=== PATIENT | male | born 1965 | race Caucasian/White ===

== ENCOUNTER 2022-09-24 02:07 | Emergency (ER) | payer OTHER, SELFPAY ==
[2022-09-24] VITALS (22 sets, daily range): BP systolic 149–177; BP diastolic 74–94; PULSE 74–86; RESP 14–36; TEMP 36.6; O2SAT 94–98
--- NOTE | ~2022-09-24 | CT_ITS ---
EXAMINATION: CT brain wo con DATE: 09/24/2022 02:40 INDICATION: Left hemiparesis. Slurred speech. TECHNIQUE: Computed tomography (CT) of the head was performed without intravenous contrast. The mA wa s adjusted according to patient size. Iterative reconstruction technique was employed. The dose-lengt h product was 1362.00 mGy-cm. COMPARISON: None FINDINGS: There is no intracranial hemorrhage, acute infarction, or abnormal intracranial mass lesion . There are scattered areas of low attenuation in the cerebral white matter. The ventricles are joy l in size. The orbits are normal. There is mucosal thickening in the paranasal sinuses. There is thic kening and sclerosis of many of the ingram of the paranasal sinuses, consistent with chronic sinusitis . The mastoid air cells are normal. There is cerumen in the external auditory canals. IMPRESSION: 1. Mild nonspecific cerebral white matter disease, which likely represents chronic small vessel ische sergio disease. 2. Chronic sinusitis. Reviewed, dictated and finalized at location A. ACE GRINDER TENDER IMPRESSION: 1. Mild nonspecific cerebral white matter disease, which likely represents special education coordinator dequan small vessel ischemic disease. 2. Chronic sinusitis.
--- NOTE | ~2022-09-24 | CT_ITS ---
EXAMINATION: CTA brain carotid DATE: 09/24/2022 02:42 INDICATION: Left hemiparesis. TECHNIQUE: Computed tomographic angiography (CTA) of the head was performed with 100 mL Omnipaque-350 intravenous contrast. CTA of the neck was performed with intravenous contrast. Automated exposure co ntrol and iterative reconstruction technique were employed. The dose-length product was 1197.95 mGy-c m. Maximum intensity projection and volume rendered 3D-reconstructions were created by the [employer] on a separate workstation. COMPARISON: Head CT 09/24/2022 FINDINGS: HEAD CTA: There are scattered areas of low attenuation in the cerebral white matter. There is no intr acranial hemorrhage, acute infarction, or abnormal intracranial mass lesion. The ventricles are joy l in size. There is mucosal thickening in the paranasal sinuses with thickening and sclerosis of many of the sinus ingram, consistent with chronic sinusitis. The orbits are normal. The mastoid air cells are normal. The vertebral arteries are codominant. There is no significant stenosis of basilar artery or the posterior cerebral arteries. There is severe stenosis of cavernous right internal carotid art geraldine and mild stenosis of intracranial left internal carotid artery. There is no significant stenosis of the anterior or middle cerebral arteries. Anterior communicating artery is normal. Left posterior communicating artery is normal. Right posterior communicating artery is not identified. There is no a neurysm. NECK CTA: There is moderate emphysema. There are no pathologically enlarged lymph nodes. There is no significant stenosis of the vertebral arteries. There is plaque in the proximal internal carotid lewis devi. There is 31% stenosis of the proximal right internal carotid artery relative to normal distal a rtery lumen diameter (NASCET criteria). There is 74% stenosis of the proximal left internal carotid a rtery relative to normal distal artery lumen diameter. There is mild cervical spondylosis. IMPRESSION: 1. Mild nonspecific cerebral white matter disease, which likely represents chronic small vessel ische sergio disease. 2. 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 3. 31% stenosis of the proximal right internal carotid artery relative to normal distal artery lumen diameter (NASCET criteria). 4. 74% stenosis of the proximal left internal carotid artery relative to normal distal artery lumen d iameter. 5. Chronic sinusitis. 6. Moderate emphysema. Reviewed, dictated and finalized at location A. CE CLERK IMPRESSION: 1. Mild nonspecific cerebral white matter disease, which likely represents security rover dequan small vessel ischemic disease. 2. 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 3. 31% stenosis of the proximal right internal carotid artery relative to joy l distal artery lumen diameter (NASCET criteria). 4. 74% stenosis of the proximal left internal carotid artery relative to normal distal artery lumen diameter. 5. Chronic sinusitis. 6. Moderate emphysema.
--- NOTE | ~2022-09-24 | XR_ITS ---
EXAMINATION: XR chest 1V portable DATE: 09/24/2022 02:51 INDICATION: Stroke. TECHNIQUE: A single frontal view of the chest was obtained. COMPARISON: None. FINDINGS: The chest demonstrates clear lungs without pneumonia, pleural effusion, or pneumothorax. Th e heart size is normal. There is a prominent left paracardial fat pad. IMPRESSION: 1. No acute cardiopulmonary disease. Reviewed, dictated and finalized at location A. D SUPPORT AGENT
--- NOTE | 2022-09-24 02:05 | ECG_ITS ---
Measurements Intervals [place] Rate: 80 P: 27 NV: 160 QRS: -60 QRSD: 108 T: 31 QT: 393 QTc: 454 Interpretive Statements SINUS RHYTHM INCOMPLETE RIGHT BUNDLE BRANCH BLOCK LEFT ANTERIOR FASCICULAR BLOCK ABNORMAL ECG NO PREVIOUS ECG AVAILABLE FOR COMPARISON Electronically Signed On 09-24-2022 6:47:44 AUT[employer]ATION QA LEAD by Oscar Onofre D.O.
--- NOTE | 2022-09-24 02:09 | ED.GENADULT ---
HPI - General Adult General Chief complaint: Suspected CVA Stated complaint: CODE CVA History of Present Illness HPI narrative: Patient is a 56-year-old gentleman who presents the emergency department with chief complaint of left-sided facial droop and left upper extremity weakness and numbness. Patient reports that approximately 1 hour prior to arrival he started having left-sided facial droop problems talking and numbness in his left upper extremity. The patient states this began suddenly reported he had been drinking this evening some reports no prior history of CVA. Patient reports symptoms or not improved by anything nor they worsened by anything. The patient called EMS and was transported to our facility as a code stroke. Related Data Allergies Allergy/AdvReac Type Severity Reaction Status Date / Time No Known Allergies Allergy Verified 09/24/22 02:36 Review of Systems Review of Systems: A 10 system review of systems was completed on the patient and is negative except for what is stated in the HPI. Nursing and ancillary documentation was reviewed. Exam Narrative: GENERAL: Well-appearing, well-nourished, and in no acute distress. HEAD: Normocephalic, atraumatic. EYES: PERRLA and EOMI. ENT: Nares clear, no rhinorrhea or epistaxis. Mucous membranes moist. NECK: Supple. CHEST: Clear to auscultation. No respiratory distress. HEART: Regular rate and rhythm. No murmur heard. Normal peripheral pulses. ABDOMEN: Soft, nontender, nondistended, normal active bowel sounds. EXTREMITIES: Normal range of motion. No edema. SKIN: Warm, dry, no rash. NEURO: Left-sided facial droop, speech is slurred but able to understand what he is saying. The patient has drift in his left upper extremity decree sensation in the left face and left upper extremity PSYCH: Normal mood and affect. Course Course Emergency Course: CT head showed no evidence of hemorrhage. CTA showed evidence of a 50% narrowing in the right internal carotid approximately 50% no evidence of large embolic occlusion. The case was discussed with Dr. Meza of the [place] stroke team and discussion of the patient's case and the patient stroke scale is felt the patient did meet the criteria for tPA patient was consented for tPA patient understood the risk and benefits of receiving IV tPA. Vital Signs Vital signs: Vital Signs Temperature 36.6 C 09/24/22 02:37 Pulse Rate 75 09/24/22 02:37 Respiratory Rate 18 09/24/22 02:37 Blood Pressure 161/74 H 09/24/22 02:37 Pulse Oximetry 98 09/24/22 02:37 Temperature 36.6 C 09/24/22 02:37 Pulse Rate 78 09/24/22 02:37 Respiratory Rate 18 09/24/22 02:37 Blood Pressure 161/74 H 09/24/22 02:37 Pulse Oximetry 97 09/24/22 02:37 Medical Decision Making Vital Signs Vital Signs: Vital Signs Temperature 36.6 C 09/24/22 02:37 Pulse Rate 75 09/24/22 02:37 Respiratory Rate 18 09/24/22 02:37 Blood Pressure 161/74 H 09/24/22 02:37 Pulse Oximetry 98 09/24/22 02:37 Temperature 36.6 C 09/24/22 02:37 Pulse Rate 78 09/24/22 02:37 Respiratory Rate 18 09/24/22 02:37 Blood Pressure 161/74 H 09/24/22 02:37 Pulse Oximetry 97 09/24/22 02:37 Lab Data Result diagrams: 09/24/22 02:24 09/24/22 02:24 Labs: Lab Results 09/24/22 09/24/22 09/24/22 Range/Units 02:13 02:23 02:24 WBC (4.5-10.0) K/mm3 RBC (4.6-6.20) M/mm3 Hgb (14.0-18.0) g/dL Hct (42.0-52.0) % MCV (80-100) fl MCH (26-34) pg MCHC (32-36) g/dl RDW (11.5-14.5) % Plt Count (150-375) k/mm3 MPV (7.4-10.4) fl Immature Gran % (Auto) (0-0.5) % Neut % (Auto) (45.5-73.1) % Lymph % (Auto) (18.3-44.2) % [place] % (Auto) (2.6-8.5) % Eos % (Auto) (0-4.4) % Baso % (Auto) (0.2-1.2) % Lymph # (Auto) (0.9-3.2) K/mm3 [place] # (Auto) (0.1-0.6) K/mm3 Eos # (Auto) (0-0.3) K/mm3 Baso # (Auto) (0.0-0.1
[2022-09-24 02:32] LABS: Basophils Absolute Auto 0.1 K/mm3 (0.0-0.1); Basophils Percent Auto 0.8 % (0.2-1.2); Eosinophils Percent Auto 0.3 % (0-4.4); Hematocrit 50.3 % (42.0-52.0); Hemoglobin 17.4 g/dL (14.0-18.0); Immature Granulocyte Absolute 0.06 K/mm3 (0.00-0.031); Immature Granulocyte Percent A 0.5 % (0-0.5); Lymphocytes Absolute Auto 1.69 K/mm3 (0.9-3.2); Lymphocytes Percent Auto 14.2 % (18.3-44.2); Mean Corpuscular HGB Conc 34.6 g/dl (32-36); Mean Corpuscular Hemoglobin 30.1 pg (26-34); Mean Platelet Volume 12.4 fl (7.4-10.4); Monocytes Absolute Auto 0.4 K/mm3 (0.1-0.6); Monocytes Percent Auto 3.7 % (2.6-8.5); Neutrophils Absolute Auto 9.6 K/mm3 (1.3-6.7); Neutrophils Percent Auto 80.5 % (45.5-73.1); Platelet Count Result 235 k/mm3 (150-375); Red Blood Count 5.78 M/mm3 (4.6-6.20); Red Cell Distribution Width 13.7 % (11.5-14.5); White Blood Count 11.9 K/mm3 (4.5-10.0)
[2022-09-24 02:37] LABS: Glucose Point of Care 252 mg/dl (65-105)
[2022-09-24 02:43] LABS: Partial Thromboplastin Time 27.6 SECONDS (22.3-36.8); Prothrombin Time 13.2 Seconds (11.1-14.7)
[2022-09-24 02:44] LABS: Lactic Acid Reflex 2.6 mmol/L (0.7-2.0)
[2022-09-24 02:46] LABS: Ethanol 110 mg/dL (<10)
[2022-09-24] MEDS: LABETALOL HCL INJ 100 MG/20 ML VIAL (03:04)
[2022-09-24 03:55] LABS: Influenza A QL RT-PCR Negative (Negative); Influenza B QL RT-PCR Negative (Negative); SARS-CoV-2 RNA PCR Negative
[2022-09-24 04:04] LABS: Appearance Urine Clear (Clear); Bilirubin Urine Negative (Negative); Blood Urine 1+ (Negative); Glucose Urine UA 2+ mg/dL (Negative); Ketones Urine Trace mg/dL (Negative); Leukocyte Esterase Ur Negative LEU/UL (Negative); Nitrate Urine Negative (Negative); Protein Urine 1+ mg/dL (Negative); Urobilinogen Urine 0.2 mg/dL (<2.0); pH Urine 6.5 (5.0-9.0)
[2022-09-24 04:07] LABS: Bacteria Urine Trace /hpf; WBC Urine 0-3 /hpf
[2022-09-24 04:08] LABS: Add Urine Microscopic? YES; Color Urine Light Yellow (Yellow)
[2022-09-24 04:18] LABS: Amphetamine Screen Urine Negative (Negative); Barbiturate Screen Urine Negative (Negative); Benzodiazepines Screen Urine Negative (Negative); Cannabinoid Screen Urine Negative (Negative); Cocaine Screen Urine Negative (Negative); Methadone Screen Urine Negative (Negative); Opiate Screen Urine Negative (Negative); Phencyclidine Screen Urine Negative (Negative)
[2022-09-24 05:29] LABS: Reflex Lactic Acid Yes or No Add Lactic
== END 2022-09-24 04:24 | disposition short-term general hospital (02) ==
PROVIDERS: Emergency Provider Emergency Medicine
DX: I63.9 Cerebral infarction, unspecified (principal); R29.810 Facial weakness; R47.9 Unspecified speech disturbances; R29.704 NIHSS score 4; Z20.822 Contact with and (suspected) exposure to COVID-19; R94.31 Abnormal electrocardiogram [ECG] [EKG]
CPT/HCPCS: 36415; 37195; 70450; 70496; 70498; 71045; 80307; 81001; 82948; 83605; 85025; 85610; 85730; 87502; 93005; 96374; 99285; J2997; Q9967; U0003; U0005